=== PATIENT | female | born 1935 | race Caucasian/White ===

== ENCOUNTER 2016-12-29 07:06 | Inpatient (IN) | payer OTHER ==
[2016-12-21 14:46] VITALS: BMI 26.6
--- NOTE | 2016-12-28 09:39 | HP ---
[facility] - Chief Complaint Chief Complaint: left knee pain - Past Medical History Allergies/Adverse Reactions: Allergies Allergy/AdvReac Type Severity Reaction Status Date / Time Sulfa (Sulfonamide Allergy Itching Verified 12/21/16 14:46 Antibiotics) - Current Medications Current Medications: Home Medications Medication Instructions Recorded Albuterol 0.083% Nebulizer Jaimee 1 neb PO TID 12/21/16 [Ventolin 0.083% Nebulizer Soln -] Amlodipine Bes/Olmesartan Med 5 - 20 mg PO DAILY 12/21/16 [Megan 10-40 mg Tablet] Anastrozole [Arimidex -] 1 tab PO DAILY 12/21/16 Cholecalciferol (Vitamin D3) 1,000 unit PO DAILY 12/21/16 [Vitamin D3 -] Ipratropium 0.02% Nebulizer 1 neb PO TID 12/21/16 [Atrovent 0.02% Nebulizer -] Levothyroxine [Synthroid -] 150 mcg PO DAILY 12/21/16 Metformin HCl 500 mg PO BID 12/21/16 Montelukast Na [Singulair -] 10 mg PO HS 12/21/16 Salmeterol/Fluticasone [Advair 1 inh PO DAILY 12/21/16 500Mcg/50Mcg -] Simvastatin 10 mg PO WEEKLY 12/21/16 Spironolactone 25 mg PO DAILY 12/21/16 [facility] Physical Exam - Physical Examination General Appearance: Well Nourished, Well Developed, Alert & Oriented x3 ENT: Clear Lung: Normal air movement Heart: Regular rate & rhythm Extremities: Other (left knee- + swelling, + ttp ,decr rom, nvi xrays show severe tricompartmental djd) Neurological: Intact, Alert, Oriented Satellite Impression/Plan - Impression/Plan Impression: left knee djd Operative Procedure: left delmi tkr Date to be Performed: 12/29/16
[2016-12-29] MEDS ORDERED: VANCOMYCIN 1,000 MG VIAL (RESTRICTED TO ID ONLY) ONE (07:15)
[2016-12-29] MEDS ORDERED: ceFAZolin SODIUM 1 GM VIAL ONE ×2 (07:15→09:53)
[2016-12-29] MEDS ORDERED: TRANEXAMIC ACID 1000 MG/10 ML VIAL IVPUSH ONE (07:33)
[2016-12-29] MEDS ORDERED: GABAPENTIN 300 MG CAPSULE (FP) PO ONE (07:33)
[2016-12-29] MEDS ORDERED: CEFAZOLIN 1 GM/D5W 50 ML IVPB ONE (07:33)
[2016-12-29] MEDS ORDERED: BUPIVACAINE HCL/PF 0.5% (5MG/ML) 10 ML VIAL ONE (08:40)
[2016-12-29] MEDS ORDERED: SODIUM CHLORIDE 0.9% P/F 10 ML VIAL IJ ONE (08:42)
[2016-12-29] MEDS ORDERED: DEXAMETHASONE SOD PHOSPHATE/PF 10 MG/ML SDV ONE (08:42)
[2016-12-29] MEDS ORDERED: MIDAZOLAM HCL 2 MG/2 ML SINGLE DOSE VIAL ONE ×2 (08:42→10:21)
[2016-12-29] MEDS ORDERED: ALBUTEROL SO4 6.7 GM HFA INHALER IH ONE (09:33)
[2016-12-29] MEDS ORDERED: ePHEDrine SULFATE 50 MG/1 ML AMPULE ONE (09:52)
[2016-12-29] MEDS ORDERED: ONDANSETRON 4 MG/2 ML VIAL IVPB PRN (11:35)
[2016-12-29] MEDS ORDERED: MAGNESIUM HYDROX 2400MG/30ML ORAL SUSPENSION 30 ML CUP PO PRN (11:35)
[2016-12-29] MEDS ORDERED: MAG HYDROX/AL HYDROX/SIMETH 30 ML UNIT-DOSE CUP PO PRN (11:35)
--- NOTE | 2016-12-29 11:41 | OP ---
Operative Note - Note: Operative Date: 12/29/16 (augusto) Pre-Operative Diagnosis: left knee djd Operation: left delmi tkr Post-Operative Diagnosis: Same as Pre-op Surgeon: Luis Manuel Johnson Weight Inspector: Lucius Mayorga Anesthesiologist/HAND WINDER: Alex Ibarra Anesthesia: Spinal, Local Specimens Removed: bone fragments Estimated Blood Loss (mls): 50 (tourniquet) Operative Report Dictated: Yes
[2016-12-29] MEDS ORDERED: LACTATED RINGERS SOLUTION 1,000 ML IV SCH (11:45)
[2016-12-29] MEDS ORDERED: PROMETHAZINE HCL 25 MG/1 ML VIAL IVPUSH PRN (11:54)
[2016-12-29] MEDS ORDERED: oxyCODONE HCL 5 MG TABLET PO PRN (11:54)
[2016-12-29] MEDS ORDERED: ACETAMINOPHEN 325 MG TABLET (FP) PO SCH (12:00)
[2016-12-29] MEDS ORDERED: fentaNYL CITRATE/PF 1,000 MCG/20 ML AMPUL IVPUSH PRN (12:04)
[2016-12-29] MEDS ORDERED: ACETAMINOPHEN 325 MG TABLET (FP) ONE (12:44)
[2016-12-29] MEDS: ALBUTEROL SO4 0.083% IH SOL 2.5 MG/3 ML VIAL.NEB. NEB SCH ×2 (14:21→21:18)
[2016-12-29] MEDS: IPRATROPIUM BR 0.02% 0.5 MG/2.5 ML VIAL.NEB. NEB SCH ×2 (14:21→21:18)
[2016-12-29] MEDS: oxyCODONE HCL 5 MG TABLET PO PRN ×3 (14:23→21:16)
[2016-12-29] MEDS ORDERED: INSULIN (NOVOLOG) ASPART 100 UNITS/ML 10ML VIAL ONE (16:19)
[2016-12-29] MEDS: metFORMIN HCL 500 MG TABLET (FP) PO SCH (16:21)
[2016-12-29] MEDS: INSULIN SLIDING SCALE (NOVOLOG) 1 VIAL SQ SCH ×2 (16:21→21:18)
[2016-12-29] MEDS: CEFAZOLIN 1 GM/D5W 50 ML IVPB SCH (17:27)
[2016-12-29] MEDS: ACETAMINOPHEN 325 MG TABLET (FP) PO SCH (20:41)
[2016-12-29] MEDS: SENNOSIDES/DOCUSATE COMBO (SENNA PLUS) TABLET (UD) PO SCH (21:17)
[2016-12-29] MEDS: MONTELUKAST NA 10 MG TABLET PO SCH (21:17)
[2016-12-29] MEDS: oxyCODONE HCL 10 MG SUSTAINED ACTING TABLET PO SCH (21:17)
[2016-12-29] MEDS ORDERED: BUDESONIDE/FORMETEROL FUMARATE 160/4.5 mcg INHALER IH SCH (22:00)
[2016-12-30] MEDS: oxyCODONE HCL 5 MG TABLET PO PRN ×2 (01:10→08:07)
[2016-12-30] MEDS: ACETAMINOPHEN 325 MG TABLET (FP) PO SCH ×4 (01:10→20:18)
[2016-12-30] MEDS: CEFAZOLIN 1 GM/D5W 50 ML IVPB SCH (01:10)
[2016-12-30] MEDS: LEVOTHYROXINE NA 150 MCG TABLET PO SCH (06:12)
[2016-12-30] MEDS: metFORMIN HCL 500 MG TABLET (FP) PO SCH ×2 (06:15→17:03)
[2016-12-30] MEDS: ALBUTEROL SO4 0.083% IH SOL 2.5 MG/3 ML VIAL.NEB. NEB SCH ×3 (06:15→22:03)
[2016-12-30] MEDS: IPRATROPIUM BR 0.02% 0.5 MG/2.5 ML VIAL.NEB. NEB SCH ×3 (06:16→22:03)
[2016-12-30] MEDS: INSULIN SLIDING SCALE (NOVOLOG) 1 VIAL SQ SCH ×3 (07:04→22:04)
[2016-12-30] MEDS: ASPIRIN 325 MG TABLET PO SCH (08:06)
--- NOTE | 2016-12-30 08:16 | PN ---
Progress Note (short form) - Note Progress Note: Ortho Pt seen and examined s/p left delmi tkr pod #1 Selected Entries 12/30/16 05:53 Temperature 98.0 F Pulse Rate 80 Respiratory 18 Rate Blood Pressure 136/58 dressing with slight drainage, calf soft, nt rom 0-40, nvi cbc pending a/p PT dvt ppx pain control d/c home tomorrow if stable
[2016-12-30] MEDS ORDERED: PT OWN MED DRAWER 7, Y5N ONE (09:26)
[2016-12-30] MEDS: SENNOSIDES/DOCUSATE COMBO (SENNA PLUS) TABLET (UD) PO SCH ×2 (09:34→22:03)
[2016-12-30] MEDS: VALSARTAN 160 MG TABLET (UD) PO SCH (09:34)
[2016-12-30] MEDS: MULTIVITAMINS (DAILY MVI) TABLET (FP) PO SCH (09:34)
[2016-12-30] MEDS: amLODIPine BESYLATE 10 MG TABLET (FP) PO SCH (09:34)
[2016-12-30] MEDS: PANTOPRAZOLE 40 MG TABLET (FP) PO SCH (09:34)
[2016-12-30] MEDS: ANASTROZOLE 1 MG TABLET PO SCH (09:34)
[2016-12-30] MEDS: SPIRONOLACTONE 25 MG TABLET (FP) PO SCH (09:35)
[2016-12-30] MEDS: oxyCODONE HCL 10 MG SUSTAINED ACTING TABLET PO SCH ×2 (09:35→22:07)
[2016-12-30 09:56] LABS: MCH 31.8 pg (25.7-33.7); MEAN CELL VOLUME 93.5 fl (80-96); MEAN PLT VOLUME 8.5 fl (7.5-11.1); PLATELET COUNT 320 K/MM3 (134-434); RDW 14.4 % (11.6-15.6); WHITE BLOOD COUNT 13.5 K/mm3 (4.0-10.8)
[2016-12-30] MEDS ORDERED: PATIENT'S OWN MEDICATION (NON-FORMULARY) (Salmeterol/Fluticasone [Advair 500mcg/50mcg -] 1 PO SCH (10:00)
[2016-12-30] MEDS ORDERED: PATIENT'S OWN MEDICATION (NON-FORMULARY) (Amlodipine Bes/Olmesartan Med [Azor 10-40 Mg Tab PO SCH (10:00)
[2016-12-30] MEDS ORDERED: PROMETHAZINE HCL 25 MG/1 ML VIAL IVPUSH PRN (10:48)
--- NOTE | 2016-12-30 10:53 | PN ---
Progress Note, Physician Chief Complaint: Pt. pain controlled with adductor canal block and oxycodone. Now has vomiting with pain meds. No anesthesia complaints. Sensation and motor intact in left leg and foot. - Current Medication List Current Medications: Active Medications Acetaminophen (Tylenol -) 650 mg PO Q6H [facility] Stop: 01/01/17 11:59 Last Admin: 12/30/16 08:06 Dose: 650 mg Al Hydroxide/Mg Hydroxide (Mylanta Oral Suspension -) 30 ml PO Q4H PRN PRN Reason: DYSPEPSIA Albuterol Sulfate (Ventolin 0.083% Nebulizer Soln -) 1 amp NEB TIDR [facility] Last Admin: 12/30/16 06:15 Dose: 1 amp Amlodipine Besylate (Norvasc -) 10 mg PO DAILY [facility] Last Admin: 12/30/16 09:34 Dose: Not Given Anastrozole (Arimidex -) 1 mg PO DAILY [facility] Last Admin: 12/30/16 09:34 Dose: 1 mg Aspirin (Asa -) 325 mg PO DAILY@0800 [facility] Last Admin: 12/30/16 08:06 Dose: 325 mg Fentanyl (Sublimaze Injection -) 50 mcg IVPUSH ONCE PRN PRN Reason: PAIN LEVEL 6-10 Insulin Aspart (Novolog Vial Sliding Scale -) 1 vial SQ ACHS [facility] PRN Reason: Protocol Last Admin: 12/30/16 07:04 Dose: Not Given Ipratropium [place] (Atrovent 0.02% Nebulizer -) 1 amp NEB TIDR [facility] Last Admin: 12/30/16 06:16 Dose: 1 amp Levothyroxine Sodium (Synthroid -) 150 mcg PO DAILY@0700 [facility] Last Admin: 12/30/16 06:12 Dose: 150 mcg Magnesium Hydroxide (Milk Of Magnesia -) 30 ml PO PRN PRN PRN Reason: CONSTIPATION Metformin HCl (Glucophage -) 500 mg PO BIDAC [facility] Last Admin: 12/30/16 06:15 Dose: 500 mg Montelukast Sodium (Singulair -) 10 mg PO HS [facility] Last Admin: 12/29/16 21:17 Dose: 10 mg Multivitamins/Minerals/Vitamin C (Tab-A-Vit -) 1 tab PO DAILY [facility] Last Admin: 12/30/16 09:34 Dose: 1 tab Non-Formulary Medication (Salmeterol/Fluticasone [Advair 500mcg/50mcg -]) 1 inh PO DAILY [facility] Last Admin: 12/30/16 09:35 Dose: 1 inh Simvastatin 10 Mg- Non Formulary Medicatio 10 mg PO We@2200 [facility] Ondansetron HCl (Zofran Injection) 4 mg IVPB Q6H PRN PRN Reason: NAUSEA Last Admin: 12/30/16 09:31 Dose: 4 mg Oxycodone HCl (Oxycontin -) 10 mg PO BID [facility] Stop: 01/01/17 11:55 Last Admin: 12/30/16 09:35 Dose: Not Given Oxycodone HCl (Roxicodone -) 5 mg PO Q3H PRN PRN Reason: PAIN LEVEL 1-5 Oxycodone HCl (Roxicodone -) 10 mg PO Q3H PRN PRN Reason: PAIN LEVEL 6-10 Last Admin: 12/30/16 08:07 Dose: 10 mg Pantoprazole Sodium (Protonix -) 40 mg PO DAILY [facility] Last Admin: 12/30/16 09:34 Dose: 40 mg Promethazine HCl (Phenergan Injection -) 6.25 mg IVPUSH Q4H PRN PRN Reason: NAUSEA AND/OR VOMITING Senna/Docusate Sodium (Pericolace -) 2 tablet PO BID [facility] Last Admin: 12/30/16 09:34 Dose: 2 tablet Spironolactone (Aldactone -) 25 mg PO DAILY [facility] Last Admin: 12/30/16 09:35 Dose: 25 mg Valsartan (Diovan -) 320 mg PO DAILY [facility] Last Admin: 12/30/16 09:34 Dose: Not Given - Objective Vital Signs: Vital Signs Temperature 97.8 F 12/30/16 10:00 Pulse Rate 80 12/30/16 10:00 Respiratory Rate 18 12/30/16 10:00 Blood Pressure 117/47 12/30/16 10:00 O2 Sat by Pulse Oximetry (%) 90 L 12/30/16 08:44 Constitutional: Yes: Well Nourished, No Distress, Calm Musculoskeletal: Yes: WNL Neurological: Yes: WNL, Alert, Oriented Labs: CBC, BMP 12/30/16 07:00
--- NOTE | 2016-12-30 11:05 | SPEC ---
DATE OF OPERATION: 12/29/2016 OPERATION: Left total knee replacement with robotic-assisted navigation (MAKOplasty). PREOPERATIVE DIAGNOSIS: Degenerative joint disease, left knee. POSTOPERATIVE DIAGNOSIS: Degenerative joint disease, left knee. SURGEON: Luis Manuel Johnson M.D. ASSISTANT CURATOR: Allison Tovar ANESTHESIA: Regional and spinal. CLOSURE: A Triathlon knee system with a 4 femur, a 4 tibia, a 9 polyethylene, a 35 patella. A number 1 Vicryl fascia, 0 and 2-0 for subcutaneous, 3-0 Monocryl subcuticular with skin glue for skin, 4-0 undyed Vicryl for pin sites. ESTIMATED BLOOD LOSS: Negligible. TOURNIQUET TIME: Approximately 80 minutes. COMPLICATIONS: None CONDITION: To recovery room in stable condition. DESCRIPTION OF PROCEDURE: Patient was taken to the operating room on December 29, 2016. Regional and spinal anesthesia were administered by the anesthesiologist. IV antibiotics and TXA were administered prophylactically prior to the case. A well-padded pneumatic tourniquet was placed on the left proximal thigh. The left lower extremity was prepped and draped in the usual sterile fashion. An approximately 12-cm midline incision centered over the patella was incised. Hemostasis was achieved with Bovie cautery. Sharp dissection was carried down to the level of the extensor mechanism the procedure. The medial parapatellar arthrotomy was then performed. The patella was inverted and the knee was flexed up to 90 degrees. Subperiosteal dissection was performed on the anteromedial proximal tibia until the knee was able to be brought forward. This was facilitated by taking the ACL, the PCL, and the medial and lateral menisci. A checkpoint was malleted into the medial femoral condyle and into the anteromedial proximal tibia. Through two small stab incisions in the mid femur and two in the mid tibia, two bicortical pins were drilled, achieving excellent height. Two of these pins were attached to the navigation arrays. The knee was then registered with the navigation device by rotating the hip to ascertain the center of rotation of the hip with points on both the medial and lateral malleoli and multiple points on both the femur and on the tibia. Excellent registration was confirmed by "popping the bubbles". At this time, the osteophytes on the edges of the proximal tibia both medially and laterally, as well as on the medial lateral femoral condyles underneath the collateral ligaments were debrided. The knee was stressed in extension and in flexion to confirm good gaps. The virtual positions of the components were then optimized in order to have a balanced knee, both in extension and in 90 degrees of flexion. The sizes of the components were also optimized to get good coverage over both the tibia and the femur and to produce equal gaps in extension and flexion with the appropriate amount of external rotation of the femur, the appropriate amount of flexion of the femoral component and the appropriate slope on the tibial component. At this time, the robot was brought into the field and registered. The robot was used to cut the proximal tibia and to make all the cuts on the distal femur. The bone was then removed. A spacer block in extension and flexion was used to confirm equal balancing of the component in both extension and 90 degrees of flexion. The box for the posterior cruciate sacrificing component was then performed and a trial component on the femur and tibia was applied. The femoral component was clipped into place with the appropriate external rotation. This was confirmed by the navigation device, ensuring the appropriate position of the tibial component on the proximal tibia. The patella was calipered for thickness and osteotomized at the appropriate level. A lollipop was used to drill the three lugholes in the patella and then a trial component was applied. The knee was taken through a range of motion and found to have excellent tracking of the patella from full extension to full flexion, with good stability, varus/valgus throughout range of motion. The trial components were then removed. Before removing the tibial tray, the keyhole was made. The knee was then thoroughly irrigated with antibiotic irrigation. The real components were then cemented in, using modern generation cement techniques with antibiotic cement and pressurization. After the cement was hardened, the knee was thoroughly inspected to remove all excess cement. The real polyethylene component was then clipped into place. Again, range of motion, stability and tracking were found to be excellent throughout. The knee was then pulse antibiotic irrigated and dried. Vancomycin powder was placed into the knee. The checkpoints were removed. The medial parapatellar arthrotomy was then closed using number 1 Vicryl interrupted suture. The knee was again taken through range of motion and found to have no undue tension on the repair and good tracking throughout. The subcutaneous was closed with 0 and 2-0 Vicryl and 3-0 Monocryl subcuticular for skin with skin glue. The pins were removed in the femur and the tibia and pulse antibiotic irrigated and closed with 4-0 undyed Vicryl. Sterile Aquacel dressing followed by a Strickland dressing was applied. The tourniquet was then deflated. One more dose of TXA was administered at the end of the case. The patient was awakened from anesthesia and transferred to the recovery room in stable condition. X-rays revealed good position of the components. There were no complications. Estimated blood loss was negligible. Total tourniquet time was approximately 80 minutes. Gume [id number]
[2016-12-30] MEDS ORDERED: NALOXONE HCL 0.4 MG/ML VIAL ONE (11:56)
--- NOTE | 2016-12-30 19:52 | PN ---
Progress Note (short form) - Note Progress Note: Called to pt's bedside at around 11:50 am for lethargy. Pt. in chair with spontaneous vent, arousable to painful stimuli. Last Oxycodone given at 8:07 am. Pt. completed PT and became nauseous with vomiting after PT and was given phenregan 6.25 at 11:08 after zofran failed to relieve her symptoms. VS : 111/41 74 12 O2 sat: 98% FBS: 117 EKG NSR Before blood gas could be obtained and before narcan was given, pt. awoke and became conversant with a little confusion. Moving all extremities with gross motor function intact and normal speech. I rechecked the patient at 1:30pm at which point she was fully a&o x 3 and pain and n/v free. Lethargy was likely due to phenergan. monitoring continued with no further episodes.
[2016-12-30] MEDS ORDERED: SIMVASTATIN 10 MG PO SCH (22:00)
[2016-12-30] MEDS ORDERED: INSULIN (NOVOLOG) ASPART 100 UNITS/ML 10ML VIAL ONE (22:01)
[2016-12-30] MEDS: MONTELUKAST NA 10 MG TABLET PO SCH (22:03)
[2016-12-31] MEDS: ACETAMINOPHEN 325 MG TABLET (FP) PO SCH ×2 (03:08→09:27)
[2016-12-31 06:13] VITALS: BP 120/51; PULSE 86; TEMP 98.5
[2016-12-31] MEDS: ALBUTEROL SO4 0.083% IH SOL 2.5 MG/3 ML VIAL.NEB. NEB SCH ×2 (06:21→14:34)
[2016-12-31] MEDS: LEVOTHYROXINE NA 150 MCG TABLET PO SCH (06:21)
[2016-12-31] MEDS: IPRATROPIUM BR 0.02% 0.5 MG/2.5 ML VIAL.NEB. NEB SCH ×2 (06:21→14:34)
[2016-12-31] MEDS: metFORMIN HCL 500 MG TABLET (FP) PO SCH (06:21)
[2016-12-31 08:29] LABS: MCH 31.6 pg (25.7-33.7); MCHC 33.5 g/dl (32.0-36.0); MEAN CELL VOLUME 94.4 fl (80-96); MEAN PLT VOLUME 8.6 fl (7.5-11.1); PLATELET COUNT 244 K/MM3 (134-434); RDW 14.2 % (11.6-15.6); WHITE BLOOD COUNT 10.5 K/mm3 (4.0-10.8)
--- NOTE | 2016-12-31 08:36 | PN ---
Progress Note (short form) - Note Progress Note: Ortho Pt seen and examined s/p left delmi tkr pod #2. Had reaction to phenergan which has resolved. Pt feeling much better Selected Entries 12/31/16 06:00 Temperature 98.5 F Pulse Rate 86 Respiratory 19 Rate Blood Pressure 120/51 Laboratory Tests 12/30/16 07:00 WBC 13.5 H Hgb 12.6 Hct 37.2 Plt Count 320 dressing with slight drainage, calf soft, nt rom 0-40, nvi a/p PT dvt ppx pain control d/c home today f/u in 1 week
--- NOTE | 2016-12-31 08:39 | DS ---
Physical Examination Vital Signs: Vital Signs Temperature 98.5 F 12/31/16 06:00 Pulse Rate 86 12/31/16 06:00 Respiratory Rate 19 12/31/16 06:00 Blood Pressure 120/51 12/31/16 06:00 O2 Sat by Pulse Oximetry (%) 98 12/30/16 22:30 Discharge Summary Reason For Visit: OSTEOARTHRITIS Procedures: Principal: s/p left delmi tkr Hospital Course: admitted for elective left delmi tkr, had reaction to phenergan, anesthesiologist aware, feeling much better with no residual effects, stable for d/c Condition: Good - Instructions Diet, Activity, Other Instructions: Post-op Instructions-Total Knee Replacement Call the office for a follow-up appointment in 1 week - [phone] Aspirin 325mg daily for 6 weeks. Pain medication was sent into your pharmacy. Apply Graduated Compression Stockings (TEDs) to both lower extremities- remove daily for hygiene ONLY Apply Sequential Compression Device (SCDs) to both Lower extremities remove for PT and hygiene ONLY Apply cold packs to affected area for 15 minutes every 2 hours. Physical Therapist will come to your home for the first 5 days. You will be set up with outpatient PT at your first post-operative visit. Patient may ambulate as tolerated-encourage self care (at least every 2-3 hours while awake) with walker or cane Maintain Aquacel (waterproof) dressing to operative wound (will be removed by surgeon at first office visit) Shower with Aquacel dressing in place-if Aquacel integrity compromised, remove and apply dry sterile dressing and notify Orthopedist. DO NOT SHOWER unless Orthopedists approves without Aquacel dressing CONTACT THE OFFICE FOR ANY CHANGE IN YOUR CONDITION (for example-fever greater than 102 degrees,excessive bleeding from operative site, purulent drainage, severe swelling or pain) GO TO THE EMERGENCY ROOM IF THERE IS A MEDICAL EMERGENCY Knee Precautions: * Keep a rolled towel under affected heel while in bed or chair (to keep knee in extension) * Keep affected leg elevated except during mealtimes * DO NOT PLACE PILLOW UNDER AFFECTED KNEE * If you have any questions, please do not hesitate to call the office - . Referrals: Luis Manuel Johnson MD [Staff Physician] - Disposition: VNS/HOME HEALTH CARE - Home Medications Comprehensive Discharge Medication List: Ambulatory Orders Albuterol 0.083% Nebulizer Jaimee [Ventolin 0.083% Nebulizer Soln -] 1 neb PO TID 12/21/16 Amlodipine Bes/Olmesartan Med [Megan 10-40 mg Tablet] 5 - 20 mg PO DAILY Anastrozole [Arimidex -] 1 tab PO DAILY 12/21/16 Cholecalciferol (Vitamin D3) [Vitamin D3 -] 1,000 unit PO DAILY 12/21/16 Ipratropium 0.02% Nebulizer [Atrovent 0.02% Nebulizer -] 1 neb PO TID 12/21/16 Levothyroxine [Synthroid -] 150 mcg PO DAILY 12/21/16 Metformin HCl 500 mg PO BID 12/21/16 Montelukast Na [Singulair -] 10 mg PO HS 12/21/16 Salmeterol/Fluticasone [Advair 500Mcg/50Mcg -] 1 inh PO DAILY 12/21/16 Simvastatin 10 mg PO WEEKLY 12/21/16 Spironolactone 25 mg PO DAILY 12/21/16 Aspirin [ASA -] 325 mg PO DAILY@0800 tablet 12/29/16 Oxycodone HCl/Acetaminophen [Percocet 5-325 mg Tablet -] 1 - 2 tab PO Q6H #50 tab MDD 8 12/29/16
[2016-12-31] MEDS ORDERED: PT OWN MED DRAWER 7, Y5N ONE (09:19)
[2016-12-31] MEDS: VALSARTAN 160 MG TABLET (UD) PO SCH (09:23)
[2016-12-31] MEDS: ASPIRIN 325 MG TABLET PO SCH (09:25)
[2016-12-31] MEDS: MULTIVITAMINS (DAILY MVI) TABLET (FP) PO SCH (09:25)
[2016-12-31] MEDS: ANASTROZOLE 1 MG TABLET PO SCH (09:26)
[2016-12-31] MEDS: SPIRONOLACTONE 25 MG TABLET (FP) PO SCH (09:26)
[2016-12-31] MEDS: amLODIPine BESYLATE 10 MG TABLET (FP) PO SCH (09:26)
[2016-12-31] MEDS: PANTOPRAZOLE 40 MG TABLET (FP) PO SCH (09:27)
[2016-12-31] MEDS: oxyCODONE HCL 10 MG SUSTAINED ACTING TABLET PO SCH (09:27)
[2016-12-31] MEDS: SENNOSIDES/DOCUSATE COMBO (SENNA PLUS) TABLET (UD) PO SCH (09:27)
[2016-12-31] MEDS: INSULIN SLIDING SCALE (NOVOLOG) 1 VIAL SQ SCH (11:55)
--- NOTE | 2017-01-01 14:06 | PATH ---
Surgical Pathology Report Patient Name: SHAWNA SIMS Med. Rec. #: [id number] /Age/Gender: 1935 (Age: 81) / F Account: [id number] Location: [facility] MED-SURG Taken: 12/29/2016 Received: 12/29/2016 Reported: 01/01/2017 Physicians: Luis Manuel Johnson M.D. Specimen(s) Received LEFT KNEE BONE Clinical History Osteoarthritis left knee Final Diagnosis BONE AND SOFT TISSUE, LEFT KNEE, REPLACEMENT: DEGENERATIVE JOINT DISEASE. Electronically Signed Amarjit Koenig M.D. Gross Description Received in formalin labeled "left knee bone," is a 12.5 x 10.0 x 2.5 cm aggregate of multiple sweeney, irregular portions of bone and soft tissue. The tibial plateau measures 7.2 x 5.4 x 1.5 cm. There are no areas of eburnation identified. The articular surfaces are sweeney-yellow and focally granular. The underlying trabecular bone is yellow and hard. Industrial Economist sections are submitted in one cassette, following decalcification. 12/31/2016 [facility]12/31/2016
--- NOTE | 2017-01-01 18:19 | EKG ---
Test Reason : Blood Pressure : / mmHG Vent. Rate : 073 BPM Atrial Rate : 073 BPM P-R Int : 168 ms QRS Dur : 086 ms QT Int : 350 ms P-R-T Axes : 066 -29 023 degrees QTc Int : 385 ms POOR DATA QUALITY, INTERPRETATION MAY BE ADVERSELY AFFECTED NORMAL SINUS RHYTHM NO PREVIOUS ECGS AVAILABLE Confirmed by MD GOMEZ MARJORY [id number]) on 01/01/2017 6:18:28 PM Referred By: Luis Manuel Johnson Confirmed By:JEREMI GOMEZ MD
== END 2016-12-31 14:05 | disposition home health service (06) | DRG 470 ==
LOC: FM/S 07:06
PROVIDERS: ADMIT Orthopaedic Surgery; ATTEND Orthopaedic Surgery
PROC: 8E0Y0CZ Robotic Assisted Procedure of Lower Extremity, Open Approach (ICD-10-PCS; 2016-12-29)
PROC: 0SRD0J9 Replacement of Left Knee Joint with Synthetic Substitute, Cemented, Open Approach (ICD-10-PCS; principal; 2016-12-29 09:30)
DX: M17.12 Unilateral primary osteoarthritis, left knee (principal); I10 Essential (primary) hypertension; J44.9 Chronic obstructive pulmonary disease, unspecified; E03.9 Hypothyroidism, unspecified; E11.9 Type 2 diabetes mellitus without complications; I25.10 Atherosclerotic heart disease of native coronary artery without angina pectoris
CPT/HCPCS: 36415; 73560-TC-LT; 85027; 88305-TC; 88311-TC; 93005; 93010; 94010; 94640; 94760; 97116-GP; 97162-GP